=== PATIENT | male | born 1960 | race Caucasian/White ===

== ENCOUNTER → 2025-01-19 11:18 | Outpatient (REF) | payer OTHER, SELFPAY | LOC: DHSLP 11:18 | PROVIDERS: ATTENDING PHYSICIAN Internal Medicine Cardiovascular Disease | DX: G47.33 Obstructive sleep apnea (adult) (pediatric) (principal) | CPT/HCPCS: 95800 ==

== ENCOUNTER 2025-03-16 06:09 | Day surgery (SDC) | payer OTHER, SELFPAY ==
[2025-02-19 10:46] VITALS: BMI 31.1
[2025-02-19 11:20] LABS: % Basophils 1.1 % (0-2); % Eosinophils 3.9 % (0-6); % Immature Granulocytes 0.2 % (0-0.5); % Lymphocytes 26.1 % (20.5-51.1); % Monocytes 9.8 % (1.7-9.3); % Neutrophils 58.9 % (42.2-75.2); Absolute Basophils 0.1 10^3/uL (0-0.2); Absolute Eosinophils 0.2 10^3/uL (0-0.7); Absolute Lymphocytes 1.2 10^3/uL (1.2-3.4); Absolute Monocytes 0.5 10^3/uL (0.1-0.6); Absolute Neutrophils 2.7 10^3/uL (1.4-6.5); Hematocrit 48.4 % (39.0-52.0); Hemoglobin 16.8 g/dL (13.0-18.0); Mean Corp Hgb Conc. 34.7 g/dL (33.0-37.0); Mean Corpuscular Hgb 32.5 pg (27.0-31.0); Mean Corpuscular Volume 93.6 fL (80.0-94.0); Mean Platelet Volume 9.6 fL (7.4-10.4); Nucleated Red Blood Cells % 0 % (-); Platelet Count 202 10^3/uL (130-400); Red Blood Cell Count 5.17 10^6/uL (4.70-6.10); White Blood Cell Count 4.6 10^3/uL (4.8-10.8)
[2025-02-19 11:29] LABS: INR 1.18; PT 15.5 Sec (11.4-14.6)
[2025-02-19 11:41] LABS: ALT (SGPT) 55 U/L (0-50); AST (SGOT) 38 U/L (17-59); Albumin 4.9 g/dl (3.5-5.0); Alkaline Phosphatase 78 U/L (38-126); Blood Urea Nitrogen 25 mg/dl (9-20); Calcium 10.2 mg/dl (8.4-10.2); Carbon Dioxide 29 mmol/L (22-30); Chloride 103 mmol/L (98-107); Estimated Creatinine Clearance 102 ml/min; Glucose 99 mg/dl (70-99); Magnesium 2.2 mg/dl (1.6-2.3); Potassium 4.5 mmol/L (3.5-5.1); Sodium 142 mmol/L (135-145); Total Bilirubin 1.1 mg/dl (0.2-1.3); eGFR > 60.00
--- NOTE | 2025-02-19 11:48 | HPS.HSE ---
Family Physician
-
Family Physician: Miguel Leslie, DO
Chief Complaint
-
Persistent atrial fibrillation.
History of Present Illness
The patient is a 64 year old male presenting today for persistent atrial fibrillation. The patient reports a wide variety of symptoms associated with his arrhythmia, which include chest discomfort, shortness of breath, decreased exercise
capacity, and rare palpitations. He previously underwent a cardioversion in February 2024 secondary to this diagnosis. He is on current pharmacological therapy with Diltiazem. He reports compliance with Eliquis for oral anticoagulation. He notes that
his current symptoms greatly interfere with his activities of daily living and overall impact his quality of life. He is interested in pursuing pulmonary vein isolation for further arrhythmia management. He denies any current complaints today such
as chest pain and shortness of breath at rest, nausea, vomiting, diarrhea, lightheadedness, dizziness, cough, sore throat, or fever.
Medical History
Past Medical History
Past Medical History: Reports Other
Additional Past Medical History:
1. Persistent atrial fibrillation, status post cardioversion 02/2024; pharmacological therapy with Diltiazem and oral anticoagulation with Eliquis.
2. Hypertension.
3. Dyslipidemia.
4. Mild mitral regurgitation.
5. Mild tricuspid regurgitation.
6. Obstructive sleep apnea, awaiting device.
7. Reported transient global amnesia, approximately 15 years ago.
8. Osteoarthritis.
9. Basal cell carcinoma, status post excision.
10. Mild leukopenia.
11. Mildly elevated transaminase.
12. Obesity, BMI 31.1.
13. History of alcohol abuse per records.
Past Surgical History: Reports Other
Additional Past Surgical History:
1. Cardioversion.
2. Left small finger fracture repair.
3. Colonoscopy x2.
Social History
Tobacco: Non-smoker
Alcohol: Other (He reports, on average, drinking 1-2 times a month over the last year. He does note, however, heavy alcohol use in his past. )
Personal:
Living: Other (He lives in a 2 story twin with his spouse. )
Family History
Family History: Not pertinent
Allergies / Home Medications
Allergy/Medication List:
Home medications:
1. Eliquis 5 mg p.o. twice a day.
2. Diltiazem 120 mg p.o. daily.
3. Fish oil 1 capsule p.o. daily.
4. Losartan-Hydrochlorothiazide 100-25 mg p.o. daily.
5. Multivitamin 1 tablet p.o. daily.
6. Nmn 500 mg p.o. daily.
Allergies: No known allergies.
Review of Systems
-
A 12 point ROS was completed and negative except as noted: Yes
Physical Exam
Vital Signs
Blood pressure 129/94. Heart rate 63. Respirations 18. Pulse ox 100% on room air.
Height 5 feet, 7.5 inches. Weight 91.5 kg. BMI 31.1.
Physical Exam
General: Well Developed, Well Nourished and No Apparent Distress
HEENT: NormoCephalic, Moist mucous membranes, Atraumatic and PERRLA
Respiratory: Clear
Cardiac: Irregular Rhythm
GI: Soft, Non Tender, Non Distended and Other (Obese. )
Musculoskeletal: No Edema and Normal Gait & Station
Skin: Warm and Dry
Neuro: AO x 3 and Nonfocal/grossly intact
Laboratory Results
-
02/19/25 10:56
02/19/25 10:56
Laboratory Results
PT 15.5 Sec (11.4-14.6) H 02/19/25 10:56
INR 1.18 02/19/25 10:56
Total Bilirubin 1.1 mg/dl (0.2-1.3) 02/19/25 10:56
AST 38 U/L (17-59) 02/19/25 10:56
ALT 55 U/L (0-50) H 02/19/25 10:56
Alkaline Phosphatase 78 U/L (38-126) 02/19/25 10:56
Magnesium 2.2.
Type and screen O positive.
EKG 02/19/2025: Atrial fibrillation.
Chest CT 02/19/2025: Single, individual left and right superior and inferior pulmonary veins. No left atrial filling defect/thrombus is identified. Mild subcarinal lymphadenopathy, nonspecific.
Echocardiogram 03/17/2024: Normal left ventricular size, wall thickness, and systolic function. No regional wall motion abnormalities are seen. The ejection fraction is estimated at 65%. Normal right ventricular size and function. Mild left atrial
enlargement. Normal right atrium. Structurally normal mitral valve without significant stenosis with trace to mild regurgitation. Structurally normal aortic valve without significant stenosis or regurgitation. Structurally normal tricuspid valve
without significant stenosis with mild regurgitation. Estimated pulmonary artery pressure is 13 mmHg. Structurally normal pulmonic valve without significant stenosis or regurgitation. Normal pericardium without effusion. Normal aortic root. IVC not
well-seen.
Impression/Plan
-
IMPRESSION/PLAN:
1. Persistent atrial fibrillation: The patient is in need of pulmonary vein isolation with Dr. Dillon Ferrera on 03/16/2025. The benefits and risks of the procedure have been explained to the patient. The patient understands these risks and wishes to
proceed. He will not be required to undergo a pre-procedural chest CT or transesophageal echocardiogram as he has been compliant with his home oral anticoagulation. He is aware to continue his Eliquis up until the night prior to his procedure. He
will take no medications the morning of his procedure.
2. Obstructive sleep apnea: This is a relatively new diagnosis. 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 Strict compliance was advised given his history of atrial fibrillation.
3. Mild subcarinal lymphadenopathy, nonspecific on chest CT 02/19/2025: The patient was notified of these results through phone call on 02/20/2025. A copy of his chest CT will be forwarded to his primary care physician, Dr. Miguel Leslie, for
further medical management if felt necessary. He can proceed with his ablation as planned.
[2025-03-16] VITALS (29 sets, daily range): BP systolic 86–144; BP diastolic 57–93; BMI 30.3
--- NOTE | 2025-03-16 07:32 | ITS.CL.ABL ---
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
Ablation
Procedure Report:
Primary Processing Rep: Dr Josias Luis
Procedure Date: 03/16/2025
Patient History:
Patient is a pleasant 64-year-old male with a past medical history significant for hypertension, sleep apnea, history of alcohol use, dyslipidemia, obesity, and symptomatic persistent atrial fibrillation.
See H&P for complete details.
Indication:
Symptomatic persistent atrial fibrillation with early recurrence
Early recurrence of AF after cardioversion
Arrhythmia Specific History:
Prior Medical Therapies for Rate and Rhythm Control:
[ ] Beta-domi
X Calcium channel-domi
[ ] Amiodarone
[ ] Dronederone
[ ] Sotalol
[ ] Flecainide
[ ] Dofetilide
[ ] Options limited by bradycardia
[ ] Options limited by comorbid renal disease
Prior Procedural Therapies for AF/AFL:
X Cardioversion
[ ] Pulmonary Vein Isolation
[ ] Posterior Wall Isolation
[ ] Additional lines (Specify)
[ ] Surgical Colon-MAZE or PVI (Specify)
Procedure Performed:
X AF ablation procedure (48107) -- includes LA/CS pacing, trans-septal, 3D mapping, + ICE
[ ] +IV drug (91502)
[ ] +Other Arrhythmia (46045)
X +Other AF Line/ablation (08914) -- Floor, Roof, and posterior wall
Risks and expected recovery has been explained in detail. Alternative options have been explored, and in a shared-decision making fashion we have decided that this was the most appropriate procedure.
Method
NPO status confirmed. Grounding pad applied. Defibrillator pads applied. Continuous surface ECG, pulse oximetry, and blood pressure were monitored. Procedure was performed under general anesthesia, with anesthesia services.
Both groins were clipped, prepped with Chloraprep, and draped in sterile fashion. Time out was called. Local anesthesia administered with bupivacaine. The right femoral vein was accessed for catheter placement, using ultrasound guidance (images
saved to record), micro-puncture needle/wire, and modified seldinger technique. 3 sheaths were placed. The following catheters were used:
[ ] Tacticath SE (D/F Curve) ablation catheter
X Viewflex 9Fr ICE catheter
X Inquiry decapolar 6Fr diagnostic catheter
[ ] CRD Hex 6Fr
[ ] Arctic Front Advance Cryoballoon ([ ]28mm[ ]23mm)
[ ] Achieve Advance mapping catheter ([ ]15mm[ ]20mm)
X FlexCath Contour 10 Fr with PulseSelect PFA Catheter
X Advisor HD Grid Mapping Catheter, SE
[ ] [employer] AcuNav 8 Fr ICE catheter
[ ]Other: [ ]
Intracardiac ultrasound (ICE) was carefully advanced into the right atrium to guide sheath placement over a J-wire, catheter placement, guide trans-septal puncture, identify potential complications, identify anatomic structures and ensure proper
contact between ablation catheter and tissue.
Heparin was given prior to trans-septal puncture. Heparin was given to achieve and maintain a target ACT of 300-400 seconds throughout the procedure.
Trans-septal access was performed under ICE guidance. The trans-septal puncture was performed with a SafeSept wire through a Brockenbrough needle assembly through the steerable sheath. The wire was visualized as it entered the LSPV and system
advanced under ICE guidance and fluoroscopy into the LA. The Brockenbrough needle assembly, SafeSept wire and sheath dilator were removed under negative pressure. LA pressure was measured and recorded.
ICE and 3D mapping was performed to identify relevant cardiac structures. A careful 3D map was created to assess for regions of low-voltage and abnormal electrogram signals using HD grid mapping catheter and PulseSelect catheter. Additional mapping
was performed as outlined below.
Prior to ablation, glycopyrrolate was provided. PulseSelect catheter was advanced over J-wire to the ostium of each vein. Pulmonary vein isolation was performed with ostial and antral lesions in a circumferential manner. Contact was visualized via
EAM, ICE, fluoroscopy, and EGM signals. Posterior wall isolation was performed by anchoring the J-wire within the pulmonary vein and placing the PulseSelect catheter in contact with the posterior wall as visualized by aforementioned methods.
Following completion of ablation lesions, sinus rhythm was restored with a 200J synchronized DCCV and a post-ablation voltage/activation map was performed in sinus rhythm. Entrance and exit block were confirmed for each vein and the posterior wall.
Catheter and sheath were removed from the left atrium and post-ablation intracardiac echo evaluation was consistent with pre-ablation with no changes and no pericardial effusion and there is no left atrial thrombus or left ventricle thrombus seen.
Electrophysiology study was performed. Hemostasis was obtained with figure of 8 stitch for each groin and with manual pressure. Protamine was used for reversal.
Estimated Blood Loss
5 mL
Complications
None
Fluoroscopy: 6.7 minutes; 33.2 mGy; DAP 3.79
LA Pressure: Pre 4 mmHg, post 7 mmHg
Baseline Intervals:
Rhythm: AF
QRS: 82 ms
QT: 345 ms
Post-Procedure Intervals:
OR: 147 ms
QRS: 82 ms
QT: 410 ms
QTc: 386 ms
AVWB: 420 ms
AVNERP: 600/390 ms
AERP: 600/210 ms
Recommendations
- Bedrest with straight-leg precautions as ordered
- Anticipate same day discharge if patient meeting clinical metrics
- Resume home medications as indicated
- Ok to resume anticoagulation tonight if patient and groin sites stable
- PPI daily for 30 days
- Plan for follow-up in office as scheduled
Dillon Ferrera DO, FACC, [facility]
Clinical Cardiac Qc Analyst
cc: Dr Miguel Leslie; Dr Josias Luis
[2025-03-16 09:09] LABS: ACT-LR - POC 310 Seconds (116-155)
[2025-03-16 09:35] LABS: ACT-LR - POC 339 Seconds (116-155)
[2025-03-16 10:01] LABS: ACT-LR - POC 358 Seconds (116-155)
[2025-03-16 10:42] LABS: ACT-LR - POC 247 Seconds (116-155)
[2025-03-16] MEDS: TYLENOL 650 MG PO (11:22)
[2025-03-16 14:33] LABS: ACT-LR - POC > 397 Seconds (116-155)
--- NOTE | 2025-03-16 16:50 | W.PN.UPDATE ---
Update Note
Progress Note Update
Pt seen post PFA. Right groin site with small bleed after ambulating, managed with manual compression and bedrest. Currently now soft without ht/bleeding, non tender. OOB ambulating, urinating without difficulty. Post EKG SB/SR 60s, no acute
changes. Resume eliquis tonight at usual time. 30 day rx protonix sent to pharmacy. Followup with Dr. Luis as scheduled. Home today if groin site/tele remain stable.
== END 2025-03-16 16:20 | disposition home or self-care (01) ==
LOC: CATH 06:09
PROVIDERS: ATTENDING PHYSICIAN Internal Medicine Cardiovascular Disease; FAMILY PHYSICIAN Family Medicine; OTHER PHYSICIAN Internal Medicine Cardiovascular Disease
DX: I48.19 Other persistent atrial fibrillation (principal); E66.9 Obesity, unspecified; E78.5 Hyperlipidemia, unspecified; G47.33 Obstructive sleep apnea (adult) (pediatric); I10 Essential (primary) hypertension; I08.1 Rheumatic disorders of both mitral and tricuspid valves; M19.90 Unspecified osteoarthritis, unspecified site; Z85.828 Personal history of other malignant neoplasm of skin; R74.01 Elevation of levels of liver transaminase levels; D72.819 Decreased white blood cell count, unspecified; Z79.899 Other long term (current) drug therapy; Z79.02 Long term (current) use of antithrombotics/antiplatelets; Z79.01 Long term (current) use of anticoagulants; R59.1 Generalized enlarged lymph nodes; Z68.31 Body mass index [BMI] 31.0-31.9, adult
CPT/HCPCS: C1732; C1894; C1769; C1733; C1766; 36415; 75572; 80053; 83735; 85025; 85347; 85610; 86850; 86900; 86901; 93005; 93656; 93657; Q9967